=== PATIENT | female | born 2000 | race Caucasian/White ===

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

== ENCOUNTER 2019-01-29 19:45 | Emergency (ER) | payer OTHER ==
--- NOTE | 2019-01-29 20:56 | ED Physician Documentation ---
History of Present Illness - Stated complaint Stated Complaint: FEM - Chief complaint Chief Complaint: Abd Pain - History obtained from History obtained from: Patient - Additonal information Additional information: Patient is a 18-year-old female presenting with heavy and painful menstrual bleeding over the past several days. Patient reports that she usually has irregular periods and can often go for several months without menstrual bleeding. Patient started bleeding several days ago and is experiencing extensive cramps, particularly in her lower abdomen, as well as one episode of nausea with vomiting. Patient reports that she is using 1-2 tampons per hour to control bleeding. Patient denies urinary changes, stool changes, fever or other complaints. Patient is not use control or other protection. 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 No other improving or worsening factors noted. Review of Systems Constitutional: denies: Fever GI: reports: Abdominal Pain, Nausea, Vomiting. denies: Diarrhea : reports: Vaginal bleeding. denies: Dysuria PD PAST MEDICAL HISTORY - Past Medical History Past Medical History: No - Past Surgical History Past Surgical History: No - Allergies Allergies/Adverse Reactions: Allergies Allergy/AdvReac Type Severity Reaction Status Date / Time No Known Drug Allergies Allergy Verified 01/29/19 20:19 - Social History Does the pt smoke?: No Smoking Status: Never smoker PD ED PE NORMAL - Vitals Vital signs reviewed: Yes - General General: Alert and oriented X 3, No acute distress, Well developed/nourished - HEENT HEENT: Atraumatic, Moist mucous membranes - Neck Neck: Supple, no meningeal sign - Cardiac Cardiac: RRR, No murmur - Respiratory Respiratory: No respiratory distress, Clear bilaterally - Abdomen Abdomen: Soft, Non distended. No: Non tender (Mild diffuse tenderness, no guarding or rebound) - Derm Derm: Normal color, Warm and dry, No rash - Extremities Extremities: No deformity, No tenderness to palpate - Neuro Neuro: Alert and oriented X 3, No motor deficit, No sensory deficit - Psych Psych: Normal mood, Normal affect Results - Vitals Vitals: Vital Signs - 24 hr 01/29/19 01/29/19 20:15 21:21 Temperature 36.9 C Heart Rate 79 60 Respiratory 16 20 Rate Blood Pressure 132/77 H 111/77 O2 Saturation 99 100 Oxygen O2 Source Room air - Labs Labs: Laboratory Tests 01/29/19 01/29/19 01/29/19 20:26 20:26 21:15 WBC 9.3 RBC 4.54 Hgb 14.2 Hct 42.9 MCV 94.5 MCH 31.3 H MCHC 33.1 RDW 12.5 Plt Count 339 MPV 9.4 Neut # (Auto) 4.8 Lymph # (Auto) 3.7 H [place] # (Auto) 0.5 Eos # (Auto) 0.2 Baso # (Auto) 0.1 Absolute Nucleated RBC 0.00 Nucleated RBC % 0.0 Sodium Potassium Chloride Carbon Dioxide Anion Gap BUN Creatinine Estimated GFR (MDRD) Glucose Calcium Total Bilirubin AST ALT Alkaline Phosphatase Total Protein Albumin Globulin Albumin/Globulin Ratio Lipase Urine Color YELLOW Urine Clarity CLEAR Urine pH 7.5 Ur Specific [place] 1.020 1.020 Urine Protein NEGATIVE Urine Glucose (UA) NEGATIVE Urine Ketones NEGATIVE Urine Occult Blood SMALL H Urine Nitrite NEGATIVE Urine Bilirubin NEGATIVE Urine Urobilinogen 0.2 (NORMAL) Ur Leukocyte Esterase NEGATIVE Urine RBC 6-10 H Urine WBC 0-3 Ur Squamous Epith Cells FEW Squamous Urine Bacteria Few Ur Microscopic Review INDICATED Urine Culture Comments NOT INDICATED Urine HCG, Qual NEGATIVE 01/29/19 21:15 WBC RBC Hgb Hct MCV MCH MCHC RDW Plt Count MPV Neut # (Auto) Lymph # (Auto) [place] # (Auto) Eos # (Auto) Baso # (Auto) Absolute Nucleated RBC Nucleated RBC % Sodium 139 Potassium 4.2 Chloride 105 Carbon Dioxide 24 Anion Gap 10.0 BUN 12 Creatinine 0.7 Estimated GFR (MDRD) 108 Glucose 92 Calcium 9.6 Total Bilirubin 0.7 AST 25 ALT 25 Alkaline Phosphatase 65 Total Protein 7.5 Albumin 4.3 Globulin 3.2 Albumin/Globulin Ratio 1.3 Lipase 24 Urine Color Urine Clarity Urine pH Ur Specific [place] Urine Protein Urine Glucose (UA) Urine Ketones Urine Occult Blood Urine Nitrite Urine Bilirubin Urine Urobilinogen Ur Leukocyte Esterase Urine RBC Urine WBC Ur Squamous Epith Cells Urine Bacteria Ur Microscopic Review Urine Culture Comments Urine HCG, Qual PD MEDICAL DECISION MAKING - ED course Complexity details: reviewed results, re-evaluated patient, considered differential, d/w patient, d/w family ED course: Patient presenting with heavy menstrual bleeding and menstrual cramps. Patient has baseline irregular periods and feel this is likely the underlying cause of her issues today. Have lesser suspicion for ovarian torsion, ovarian cyst, ruptured cyst, tubo-ovarian abscess, or ectopic , but considered. Also lower suspicion for other intra-abdominal pathology including appendicitis, bowel obstruction, diverticulitis, renal disease, UTI, but also considered. Patient received Tylenol and IV fluids in the ED and had improvement of symptoms. Screening lab workObtained and was extremely unremar kable including no evidence of decreased H&H or hemorrhage. Urinalysis also relatively unremarkable. testing negative. CT abdomen/pelvis also obtained which returned unremarkable. At this time, feel that patient is safe to discharge home and discussed supportive cares, strict return precautions, appropriate follow-up. Also discussed if symptoms do not improve, that patient may need to consider medication such as control. Patient voiced understanding and is comfortable with discharge plan. Departure - Departure Disposition: 01 Home, Self Care Clinical Impression: Menstrual cramps Condition: Good Instructions: ED Bleeding Menstrual Heavy Follow-Up: your,doctor [Other] - Within 3 Days Comments: Recommend regular use of ibuprofen/Tylenol to help control menstrual cramping. May also apply heat to the abdomen. Please follow-up with [facility], ENVIRONMENTAL PROGRAMS MANAGER, primary care physician in the next 2 to 3 days and return to the ED sooner if experience lightheadedness, dizziness, passing out, worse vaginal bleeding, worse abdominal pain or other concerns. Forms: Activity restrictions
[2019-01-29] MEDS ORDERED: ACETAMINOPHEN 1,000 MG/100 ML 100 ML IV STA (21:10)
[2019-01-29 21:14] LABS: BILIRUBIN,URINE NEGATIVE (NEGATIVE); GLUCOSE, URINE (UA) NEGATIVE (NEGATIVE); KETONES,URINE (UA) NEGATIVE (NEGATIVE); LEUKOCYTE ESTERASE, URINE NEGATIVE (NEGATIVE); NITRITE,URINE NEGATIVE (NEGATIVE); OCCULT BLOOD,URINE SMALL (NEGATIVE); PH,URINE 7.5 PH (5.0-7.5); PROTEIN,URINE NEGATIVE (NEGATIVE); UROBILINOGEN,URINE 0.2 (NORMAL) E.U./dL (NORMAL)
[2019-01-29 21:18] LABS: CLARITY,URINE CLEAR (CLEAR); HCG UR QUAL NEGATIVE
[2019-01-29 21:21] LABS: BASOPHILS # (AUTO) 0.1 10^3/uL (0.0-0.1); BASOPHILS % (AUTO) 1.3 %; EOSINOPHILS # (AUTO) 0.2 10^3/uL (0.0-0.7); EOSINOPHILS % (AUTO) 1.8 %; HGB - HEMOGLOBIN 14.2 g/dL (12.0-16.0); LYMPHOCYTES # (AUTO) 3.7 10^3/uL (1.5-3.5); LYMPHOCYTES % (AUTO) 40.3 %; MEAN CORPUSCULAR HEMOGLOBIN 31.3 pg (27.0-31.0); MEAN CORPUSCULAR HGB CONC 33.1 g/dL (32.0-36.0); MEAN CORPUSCULAR VOLUME 94.5 fL (81.0-99.0); MEAN PLATELET VOLUME 9.4 fL (7.9-10.8); MONOCYTES # (AUTO) 0.5 10^3/uL (0.0-1.0); NEUTROPHILS # (AUTO) 4.8 10^3/uL (1.5-6.6); NEUTROPHILS % (AUTO) 51.2 %; PLT - PLATELET COUNT 339 10^3/uL (130-450); RED BLOOD COUNT 4.54 10^6/uL (4.20-5.40); RED CELL DISTRIBUTION WIDTH 12.5 % (12.0-15.0); WHITE BLOOD COUNT 9.3 x10^3/uL (4.8-10.8)
[2019-01-29 21:22] LABS: BACTERIA,URINE Few /HPF (None Seen); SQUAMOUS EPITHELIAL CELL,UR FEW Squamous (<= Few)
[2019-01-29 21:35] LABS: ALBUMIN 4.3 g/dL (3.2-5.5); ALBUMIN/GLOBULIN RATIO 1.3 (1.0-2.2); BILIRUBIN,TOTAL 0.7 mg/dL (0.2-1.0); CALCIUM 9.6 mg/dL (8.5-10.3); CREATININE 0.7 mg/dL (0.4-1.0); TOTAL PROTEIN 7.5 g/dL (6.7-8.2)
[2019-01-29] MEDS ORDERED: IOVERSOL 320 100 ML VIAL IVP ONE ×2 (22:14→22:25)
--- NOTE | 2019-01-29 22:42 | CT Report ---
Reason: diffuse lower abdominal pain with menstrual period Procedure Date: 01/29/2019 Accession Number: [id number] / [id number] Procedure: CT - Abdomen/Pelvis W CPT Code: FULL RESULT: EXAM: CT ABDOMEN AND PELVIS EXAM DATE: 01/29/2019 10:27 PM. CLINICAL HISTORY: Diffuse lower abdominal pain with menstrual period. COMPARISONS: None. TECHNIQUE: Routine helical CT imaging was performed through the abdomen and pelvis. IV contrast: OPTI 320 100ML. Enteric contrast: No. Reconstructions: Coronal and sagittal. In accordance with CT protocol optimization, one or more of the following dose reduction techniques were utilized for this exam: automated exposure control, adjustment of mA and/or KV based on patient size, or use of iterative reconstructive technique. FINDINGS: ABDOMEN: Lung Bases: Incompletely included lower lungs are grossly clear. Heart size is within normal limits. No basilar effusions. Liver: Unremarkable. Spleen: Unremarkable. Pancreas: Unremarkable. Gallbladder/Bile Ducts: Gallbladder is unremarkable. Biliary tree is normal caliber. Adrenal Glands: Unremarkable. Kidneys: No mass, calculi, or hydronephrosis. Peritoneum/Mesentery/Bowel: No free fluid, free air, or collection. No intestinal obstruction or inflammation. The appendix is within normal limits. Lymph nodes: No mesenteric, periportal, or retroperitoneal lymphadenopathy. Vasculature: Abdominal aorta is nonaneurysmal. Portal vein is patent. Hepatic veins are patent. PELVIS: The bladder is unremarkable for the degree of distention. Uterus and bilateral ovaries are present. No obvious abnormally enlarged adnexal abnormalities. No pelvic lymphadenopathy. Bones: No suspicious osseous lesions. IMPRESSION: No acute abnormalities. RADIA
[2019-01-29 23:22] VITALS: BP 110/68
== END 2019-01-29 23:21 | disposition home or self-care (01) ==
LOC: ED 19:45
DX: N94.4 Primary dysmenorrhea (principal); N92.1 Excessive and frequent menstruation with irregular cycle
CPT/HCPCS: 36415; 74177; 80053; 81001; 81025; 83690; 85025; 99282; 99284; J0131; Q9967; 81003; 87086

== ENCOUNTER 2019-04-30 17:40 | Emergency (ER) | payer OTHER ==
[2019-04-30 18:39] LABS: BILIRUBIN,URINE NEGATIVE (NEGATIVE); GLUCOSE, URINE (UA) NEGATIVE (NEGATIVE); KETONES,URINE (UA) NEGATIVE (NEGATIVE); LEUKOCYTE ESTERASE, URINE NEGATIVE (NEGATIVE); NITRITE,URINE NEGATIVE (NEGATIVE); OCCULT BLOOD,URINE TRACE-INTA (NEGATIVE); PH,URINE 7.5 PH (5.0-7.5); PROTEIN,URINE NEGATIVE (NEGATIVE); UROBILINOGEN,URINE 0.2 (NORMAL) E.U./dL (NORMAL)
[2019-04-30] MEDS ORDERED: SODIUM CHLORIDE 0.9% 1,000 ML IV ONE (18:39)
[2019-04-30 18:40] LABS: CLARITY,URINE CLEAR (CLEAR)
[2019-04-30] MEDS ORDERED: MORPHINE 2 MG/ML CARPUJECT IVP STA (18:40)
[2019-04-30] MEDS ORDERED: ONDANSETRON 4 MG/2 ML VIAL IVP STA (18:40)
[2019-04-30 18:43] LABS: HCG UR QUAL NEGATIVE
[2019-04-30 19:00] LABS: BASOPHILS # (AUTO) 0.1 10^3/uL (0.0-0.1); BASOPHILS % (AUTO) 0.9 %; EOSINOPHILS # (AUTO) 0.2 10^3/uL (0.0-0.7); EOSINOPHILS % (AUTO) 1.9 %; HGB - HEMOGLOBIN 12.5 g/dL (12.0-16.0); LYMPHOCYTES # (AUTO) 3.9 10^3/uL (1.5-3.5); LYMPHOCYTES % (AUTO) 43.6 %; MEAN CORPUSCULAR HEMOGLOBIN 31.4 pg (27.0-31.0); MEAN CORPUSCULAR HGB CONC 33.3 g/dL (32.0-36.0); MEAN CORPUSCULAR VOLUME 94.2 fL (81.0-99.0); MEAN PLATELET VOLUME 9.4 fL (7.9-10.8); MONOCYTES # (AUTO) 0.6 10^3/uL (0.0-1.0); MONOCYTES % (AUTO) 6.4 %; NEUTROPHILS # (AUTO) 4.1 10^3/uL (1.5-6.6); NEUTROPHILS % (AUTO) 46.7 %; PLT - PLATELET COUNT 290 10^3/uL (130-450); RED BLOOD COUNT 3.98 10^6/uL (4.20-5.40); RED CELL DISTRIBUTION WIDTH 12.7 % (12.0-15.0); WHITE BLOOD COUNT 8.9 x10^3/uL (4.8-10.8)
[2019-04-30] MEDS ORDERED: IOVERSOL 320 100 ML VIAL IVP ONE ×2 (19:18→19:44)
[2019-04-30 19:19] LABS: ALBUMIN 4.1 g/dL (3.2-5.5); ALBUMIN/GLOBULIN RATIO 1.5 (1.0-2.2); BILIRUBIN,TOTAL 0.8 mg/dL (0.2-1.0); CALCIUM 9.2 mg/dL (8.5-10.3); CREATININE 0.6 mg/dL (0.4-1.0); TOTAL PROTEIN 6.9 g/dL (6.7-8.2)
--- NOTE | 2019-04-30 20:21 | CT Report ---
Reason: RLQ to flank pain Procedure Date: 04/30/2019 Accession Number: [id number] / [id number] Procedure: CT - Abdomen/Pelvis W CPT Code: Final Report FULL RESULT: EXAM: CT ABDOMEN AND PELVIS EXAM DATE: 04/30/2019 07:43 PM. CLINICAL HISTORY: RLQ to flank pain. COMPARISONS: ABDOMEN/PELVIS W/ 01/29/2019 10:19 PM. TECHNIQUE: Routine helical CT imaging was performed through the abdomen and pelvis. IV contrast: OPTI 320 100ML. Enteric contrast: No. Reconstructions: Coronal and sagittal. In accordance with CT protocol optimization, one or more of the following dose reduction techniques were utilized for this exam: automated exposure control, adjustment of mA and/or KV based on patient size, or use of iterative reconstructive technique. FINDINGS: Lung Bases: Unremarkable. Liver: Normal. No masses. Gallbladder/Bile Ducts: Unremarkable. Spleen: Normal. Pancreas: Normal. Adrenal Glands: Normal. Kidneys: Normal. No masses or hydronephrosis. Peritoneal Cavity/Bowel: Some scattered subcentimeter mesenteric lymph nodes along the ileocolic chain. No free fluid, free air or adenopathy. No masses or acute inflammatory process. The appendix is well visualized and normal. Pelvic Organs: A tampon is present in the vagina. The bladder and visualized pelvic organs are within normal limits. Vasculature: No aneurysms or other significant abnormality. Bones: No significant abnormality. Other: None. IMPRESSION: Normal abdomen and pelvis CT. RADIA
[2019-04-30] MEDS ORDERED: KETOROLAC 30 MG/ML VIAL IVP STA (20:49)
[2019-04-30] MEDS ORDERED: HYDROmorphone 1 MG/ML CARPUJECT IVP STA (20:49)
[2019-04-30] MEDS ORDERED: ONDANSETRON ODT 4 MG Prepack 2 TL PRN (21:26)
[2019-04-30] MEDS ORDERED: HYDROcod/ACET 5/325 Prepack 4 PO STA (21:26)
--- NOTE | 2019-04-30 21:28 | ED Physician Documentation ---
PD HPI ABD PAIN - Stated complaint Stated Complaint: VOMITING/R FOOT PX/R FLANK PX - Chief complaint Chief Complaint: Ext Problem - History obtained from History obtained from: Patient, Family - History of Present Illness Timing - onset: How many hours ago (5), Today Timing - duration: Hours (5) Timing - details: Gradual onset, Still present (onset of right sided abd/low back pain with radiation to right inguinal area and also noting pain in right bottom of the foot. No noted injury. Was at work at the time, stands without lifting at work.) Quality: Aching, Pain Location: RLQ Radiation: Lower back (more lower right back and not kidney area per se.) Improved by: Laying still Worsened by: Moving. No: Breathing, Position Associated symptoms: Nausea (for 2 weeks, mostly in the mornings), Vomiting (daily for 2 weeks, mostly in mornings, and able to eat and drink fluids still. No abd pain during those couple weeks.), Vaginal bleeding (started period yesterday with tampon use just this morning.). No: Fever, Diarrhea, Dysuria, Vaginal dc Similar symptoms before: Has not had sx before Recently seen: Not recently seen Review of Systems Constitutional: denies: Fever, Chills, Myalgias Nose: denies: Rhinorrhea / runny nose, Congestion Throat: denies: Sore throat Cardiac: denies: Chest pain / pressure Respiratory: denies: Cough GI: reports: Abdominal Pain, Nausea, Vomiting (for 2 weeks). denies: Constipation, Diarrhea : reports: LMP (current). denies: Dysuria, Frequency, Discharge, Irregular menses Skin: denies: Rash Musculoskeletal: denies: Neck pain Neurologic: denies: Focal weakness, Numbness PD PAST MEDICAL HISTORY - Past Medical History Cardiovascular: None Respiratory: None Neuro: Migraines Endocrine/Autoimmune: None GI: None VP PRODUCTION: None : None HEENT: None Psych: Depression, Anxiety, Panic attacks, Post traumatic stress disorder Musculoskeletal: None Derm: None - Past Surgical History Past Surgical History: No HEENT: Tonsil/Adenoidectomy - Present Medications Home Medications: Ambulatory Orders Medication Instructions Recorded Confirmed Hydrocodone/Acetaminophen 1 - 2 each PO Q6H PRN #14 tablet 04/30/19 [Hydrocodon-Acetaminophen 5-325] Ibuprofen [Motrin] 600 mg PO TID PRN #25 tab 04/30/19 Ondansetron Odt [Zofran] 4 mg TL Q6H PRN #10 tablet 04/30/19 - Allergies Allergies/Adverse Reactions: Allergies Allergy/AdvReac Type Severity Reaction Status Date / Time No Known Drug Allergies Allergy Verified 01/29/19 20:19 - Social History Does the pt smoke?: No Smoking Status: Current every day smoker Does the pt drink ETOH?: Yes Does the pt have substance abuse?: No - POLST Patient has POLST: No PD ED PE NORMAL - Vitals Vital signs reviewed: Yes - General General: Alert and oriented X 3, No acute distress, Well developed/nourished - Neck Neck: Supple, no meningeal sign, No adenopathy - Cardiac Cardiac: RRR, No murmur - Respiratory Respiratory: Clear bilaterally - Abdomen Abdomen: Normal bowel sounds, Soft, Non distended, No organomegaly, Other (tendeer without guarding right lower abd. No hernias felt. ) - Female Female : Deferred - Rectal Rectal: Deferred - Back Back: No CVA TTP (but has some tenderness in right lower lumbar muscles. No rash. ), No spinal TTP - Derm Derm: Normal color, Warm and dry - Extremities Extremities: No tenderness to palpate, Normal ROM s pain, No edema, No calf tenderness / cord - Neuro Neuro: Alert and oriented X 3, No motor deficit, No sensory deficit, Normal speech, Other (normal reflexes at knees) Results - Vitals Vitals: Vital Signs - 24 hr 04/30/19 04/30/19 04/30/19 17:44 18:36 19:56 Temperature 36.8 C 36.9 C 36.8 C Heart Rate 76 62 60 Respiratory 18 16 18 Rate Blood Pressure 113/76 121/73 121/72 O2 Saturation 100 100 99 04/30/19 04/30/19 20:31 21:49 Temperature Heart Rate 66 88 Respiratory 16 16 Rate Blood Pressure 121/78 117/88 H O2 Saturation 100 99 Oxygen O2 Source Room air - Labs Labs: Laboratory Tests 04/30/19 04/30/19 04/30/19 18:00 18:00 18:50 WBC 8.9 RBC 3.98 L Hgb 12.5 Hct 37.5 MCV 94.2 MCH 31.4 H MCHC 33.3 RDW 12.7 Plt Count 290 MPV 9.4 Neut # (Auto) 4.1 Lymph # (Auto) 3.9 H [place] # (Auto) 0.6 Eos # (Auto) 0.2 Baso # (Auto) 0.1 Absolute Nucleated RBC 0.00 Nucleated RBC % 0.0 Sodium Potassium Chloride Carbon Dioxide Anion Gap BUN Creatinine Estimated GFR (MDRD) Glucose Calcium Total Bilirubin AST ALT Alkaline Phosphatase Total Protein Albumin Globulin Albumin/Globulin Ratio Lipase Urine Color YELLOW Urine Clarity CLEAR Urine pH 7.5 Ur Specific [place] 1.015 1.015 Urine Protein NEGATIVE Urine Glucose (UA) NEGATIVE Urine Ketones NEGATIVE Urine Occult Blood TRACE-INTA Urine Nitrite NEGATIVE Urine Bilirubin NEGATIVE Urine Urobilinogen 0.2 (NORMAL) Ur Leukocyte Esterase NEGATIVE Ur Microscopic Review NOT INDICATED Urine Culture Comments NOT INDICATED Urine HCG, Qual NEGATIVE 04/30/19 18:50 WBC RBC Hgb Hct MCV MCH MCHC RDW Plt Count MPV Neut # (Auto) Lymph # (Auto) [place] # (Auto) Eos # (Auto) Baso # (Auto) Absolute Nucleated RBC Nucleated RBC % Sodium 140 Potassium 3.7 Chloride 107 Carbon Dioxide 26 Anion Gap 7.0 BUN 17 Creatinine 0.6 Estimated GFR (MDRD) 129 Glucose 105 H Calcium 9.2 Total Bilirubin 0.8 AST 20 ALT 22 Alkaline Phosphatase 56 Total Protein 6.9 Albumin 4.1 Globulin 2.8 Albumin/Globulin Ratio 1.5 Lipase 27 Urine Color Urine Clarity Urine pH Ur Specific [place] Urine Protein Urine Glucose (UA) Urine Ketones Urine Occult Blood Urine Nitrite Urine Bilirubin Urine Urobilinogen Ur Leukocyte Esterase Ur Microscopic Review Urine Culture Comments Urine HCG, Qual - Rads (name of study) abd CT Radiology: Prelim report reviewed (no acute process), See rad report PD MEDICAL DECISION MAKING - ED course Complexity details: reviewed results (no obvious cause to the symptoms. Has pain lower back to abd and also some foot pain suggesting nerve irritation, so could be musculoskeletal low back pain. Seems unusual for the abd tenderness and the preceding 2 weeks of nausea. No clear answer at this time. ), re-evaluated patient, considered differential (consider UTI, , ovarian bleeding, appendix, kidney stone, or other process. ), d/w patient Departure - Departure Disposition: 01 Home, Self Care Clinical Impression: Right sided abdominal pain Low back pain Qualifiers: Chronicity: acute Back pain laterality: right Sciatica presence: unspecified whether sciatica present Qualified Code(s): M54.5 - Low back pain Condition: Stable Record reviewed to determine appropriate education?: Yes Instructions: ED Abdominal Pain Unkn Cause Follow-Up: Mariaelena Ramirez ARNP [Primary Care Provider] - Prescriptions: Hydrocodone/Acetaminophen [Hydrocodon-Acetaminophen 5-325] 1 - 2 each PO Q6H PRN #14 tablet PRN Reason: pain Ibuprofen [Motrin] 600 mg PO TID PRN #25 tab PRN Reason: Pain Ondansetron Odt [Zofran] 4 mg TL Q6H PRN #10 tablet PRN Reason: Nausea / Vomiting Comments: Your CT scan and labs do not show an obvious cause for the pain. I presume its possibly some ovarian pain perhaps given that you are under.. It could be musculoskeletal as well. I think we can treated with anti-inflammatories of some ibuprofen 3 times a day. To that add ondansetron for nausea and Tylenol or hydrocodone if needed for pain. Follow-up with your primary care if not improved over the next several days and return if worsening. Forms: Activity restrictions Discharge Date/Time: 04/30/19 21:50
[2019-04-30 21:50] VITALS: BP 117/88
== END 2019-04-30 21:50 | disposition home or self-care (01) ==
LOC: ED 17:40
DX: R10.31 Right lower quadrant pain (principal); M54.5 Low back pain; M79.671 Pain in right foot; F17.200 Nicotine dependence, unspecified, uncomplicated
CPT/HCPCS: 36415; 74177; 80053; 81003; 81025; 83690; 85025; 96361; 96374; 96375; 99283; 99284; J1170; Q9967; 81001; 87086

== ENCOUNTER 2019-05-01 18:17 | Outpatient (CLI) | payer OTHER | END 2019-05-01 18:18 | disposition critical access hospital (66) | LOC: EMS 18:17 | PROVIDERS: ATTEND Surgery | DX: R55 Syncope and collapse (principal) | CPT/HCPCS: A0425; A0429 ==